=== PATIENT | male | born 1965 | race Caucasian/White ===

== ENCOUNTER → 2017-08-02 | Outpatient (CLI) | payer OTHER ==
[~2017-08-02] MED LIST: 12 HOUR DECONG120 M1 PO; ALLEGRA-D 241 TABLET PO; BACTRIM,SEPT1 TABLET PO; CLARINEX-D 241 EACH PO; Ecotrin PO; FISH OIL CONC1000 MG PO; FLEXERIL10 MG PO; FLONASE16 G1 BOTH NARES; LEXAPRO10 MG PO; MOBIC7.5 MG PO; MONTELUKAST SOD10 MG PO; MOTRIN400 MG PO; MUCINEX600 MG PO; NAPROSYN500 MG PO; NASONEX17 GM BOTH NARES; NOHOMEMEDS; OCEAN NASAL 0.645 ML BOTH NARES; OXYCODONE HCL5 MG PO; PERCOCET 5/31 TABLET PO; PRAVACHOL80 MG PO; PREDNISONE20 MG PO; PRILOSEC20 MG PO; PROVENTIL17 GM IH; TRAMADOL HCL50 MG PO; VALIUM5 MG PO; VERAMYST10 GM NS; ZITHROMAX Z-PA250 MG PO
== END | disposition home or self-care (01) ==
LOC: CDC 09:18
DX: Z01.810 Encounter for preprocedural cardiovascular examination (principal); K40.91 Unilateral inguinal hernia, without obstruction or gangrene, recurrent; R94.31 Abnormal electrocardiogram [ECG] [EKG]
CPT/HCPCS: 93000

== ENCOUNTER 2017-08-16 05:43 | Day surgery (SDC) | payer OTHER ==
[~2017-08-16] VITALS: Ht 177.8 cm; Wt 81.7 kg
[~2017-08-16 05:43] MED LIST changes: -LEXAPRO10 MG PO; +LEXAPRO20 MG PO; +OXAYDO5 MG PO; +SINGULAIR10 MG PO
[2017-08-16 06:00] VITALS: BP 121/67
[2017-08-16] MEDS ORDERED: NORCO 5/3251 TABLET PO (08:57)
[2017-08-16 09:55] VITALS: BP 133/67
[2017-08-16 10:18] VITALS: BP 118/66
== END 2017-08-16 10:23 | disposition home or self-care (01) ==
LOC: SDC 05:43
PROC: 0YU50JZ Supplement Right Inguinal Region with Synthetic Substitute, Open Approach (ICD-10-PCS; principal; 2017-08-16)
DX: K40.91 Unilateral inguinal hernia, without obstruction or gangrene, recurrent (principal); J45.909 Unspecified asthma, uncomplicated; K21.9 Gastro-esophageal reflux disease without esophagitis; Z87.891 Personal history of nicotine dependence
CPT/HCPCS: 94640; C1781; J0131; J0330; J0690; J1100; J1170; J1885; J2250; J2405; J2710; J3010; J7120; J7643